=== PATIENT | female | born 1940 | race Caucasian/White ===

== ENCOUNTER → 2022-07-23 | Outpatient (CLI) | payer OTHER | LOC: EDSEX 13:04 → RAD 13:04 | DX: R05.9 Cough, unspecified (principal); R06.00 Dyspnea, unspecified | CPT/HCPCS: 70220; 71046 ==

== ENCOUNTER → 2022-07-23 | Outpatient (CLI) | payer OTHER | LOC: HEART 5 10:57 → EDSEX 10:57 | DX: R05.9 Cough, unspecified (principal); R06.02 Shortness of breath; R94.2 Abnormal results of pulmonary function studies | CPT/HCPCS: 94060; 94729 ==